=== PATIENT | male | born 1970 | race American Indian/Alaskan Native ===

== ENCOUNTER 2020-08-20 20:14 | Emergency (ER) | payer SELFPAY ==
--- NOTE | 2020-08-20 20:56 | Event Note ---
ED Screening Note ED Screening Note: has not taken BP medication in a couple weeks states he is supposed to be taking amlodipine and hctz states that he began having tingling in the right arm no numbness or weakness no CP no SOB no fever no n/v/d no other pmhx no allergies to meds +smoker, 1/2 ppd This initial assessment/diagnostic orders/clinical plan/treatment(s) is/are subject to change based on patients health status, clinical progression and re- assessment by fellow clinical providers in the ED. Further treatment and workup at subsequent clinical providers discretion. Patient/guardian urged not to elope from the ED as their condition may be serious if not clinically assessed and managed. Initial orders include: labs, EKG, ua
[2020-08-20] MEDS ORDERED: amLODIPine 5 MG TAB PO ONE (21:18)
--- NOTE | 2020-08-20 21:18 | Emergency Department Report ---
HPI - General Chief Complaint: Dizziness Time Seen by Provider: 08/20/20 20:55 - HPI HPI: This is a 49-year-old male who presents to the emergency department with a complaint of a 2-week history of elevated blood pressure intermittent lightheadedness, intermittent right upper arm soreness and occasional right arm numbness. Patient does have history of hypertension for which she is on 2 blood pressure medications, the names of which she cannot remember, but he lost the medication about 3 weeks ago. Patient came in this evening as he brought his in to be seen for a cough and decided that this was a good time to be checked out for his previously mentioned symptoms. At the time of my examination the patient is asymptomatic. There are no known aggravating or alleviating factors. He does not have a primary care physician. He is a tobacco smoker. He does drink alcohol, although not daily and no history of alcohol dependence, and the patient denies any illicit drug use. Patient has been checking his blood pressure at home and says that it has been variable. He denies any chest pain, shortness of breath, fever, lower extremity swelling, back pain. No recent travel. ED Past Medical Hx - Past Medical History Previous Medical History?: Yes Hx Hypertension: Yes - Social History Smoking Status: Current Every Day Smoker Substance Use Type: Alcohol - Medications Home Medications: Home Medications Medication Instructions Recorded Confirmed Last Taken Type amLODIPine 10 mg PO DAILY #30 tab 08/20/20 Unknown Rx lisinopriL [Zestril TAB] 10 mg PO QDAY #30 tablet 08/20/20 Unknown Rx ED Review of Systems ROS: Stated complaint: ELEVATED BLOOD PRESSURE Other details as noted in HPI Comment: All other systems reviewed and negative Constitutional: denies: chills, fever Eyes: denies: eye pain, vision change ENT: denies: ear pain, throat pain Respiratory: denies: cough, shortness of breath Cardiovascular: denies: chest pain, palpitations Gastrointestinal: denies: abdominal pain, vomiting Genitourinary: denies: dysuria, discharge Musculoskeletal: myalgia (intermittent right arm soreness). denies: back pain Skin: denies: rash Neurological: numbness (intermittent right arm numbness), other (lightheaded). denies: headache, weakness Physical Exam - Physical Exam Vital Signs: Vital Signs 08/20/20 20:39 Temperature 99.3 F Pulse Rate 84 Respiratory 18 Rate Blood Pressure 177/105 O2 Sat by Pulse 97 Oximetry Physical Exam: GENERAL: The patient is well-developed well-nourished. HENT: Normocephalic. Atraumatic. Patient has moist mucous membranes. EYES: Extraocular motions are intact. No nystagmus. NECK: Supple. Trachea is midline. CHEST/LUNGS: Clear to auscultation. There is no respiratory distress noted. HEART/CARDIOVASCULAR: Regular. There is no tachycardia. There is no murmur. ABDOMEN: Abdomen is soft, nontender. Patient has normal bowel sounds. SKIN: Skin is warm and dry. NEURO: The patient is awake, alert, and oriented. The patient is cooperative. The patient has no focal neurologic deficits. Normal speech. Cranial nerves II through XII grossly intact. No pronator drift or dysmetria. MUSCULOSKELETAL: There is no tenderness or deformity. There is no limitation range of motion. Muscle strength 5 out of 5 for upper and lower extremities bilaterally. ED Course Vital Signs 08/20/20 20:39 Temperature 99.3 F Pulse Rate 84 Respiratory 18 Rate Blood Pressure 177/105 O2 Sat by Pulse 97 Oximetry ED Medical Decision Making - Lab Data Result diagrams: 08/20/20 21:14 08/20/20 21:14 - EKG Data -: EKG Interpreted by Me EKG shows normal: sinus rhythm, axis, intervals, QRS complexes (LVH, Q waves to the septal leads), ST-T waves (T wave inversions to the lateral leads) - EKG Data When compared to previous EKG there are: previous EKG unavailable Interpretation: other (Sinus rhythm, normal axis, normal intervals, Q waves to the septal leads, LVH, T wave inversions to the lateral leads. No ST elevation myocardial infarction.) - Medical Decision Making This patient presents to the emergency department with the complaints of intermittent mild lightheadedness, intermittent right arm soreness and numbness, and issues with controlling his blood pressure. Although the patient does have medication noncompliance as he has been out of his medications for close to 3 weeks. At the time of my evaluation the patient is asymptomatic. The only reason the patient checked into the emergency department this evening was because he brought his here to be evaluated for a cough that she has, and the patient felt it was a good time to get evaluated for his blood pressure and recent issues. On examination the patient does not have any focal, motor or sensory deficits and his cranial nerves are intact. He has full muscle strength to all 4 extremities. He does not appear in any respiratory or acute distress. The patient is a 0 on the NIH stroke scale. The patient has no complaints of any recent shortness of breath or chest pain. An EKG was done that shows some T wave inversions to the lateral leads, LVH, Q waves to the septal leads, but there is no morphology consistent with ST elevation myocardial infarction. The patient's labs have been mostly unremarkable including CBC, metabolic panel, urinalysis and a negative troponin. The patient did have some mild renal insufficiency with a creatinine level of 1.4 and a GFR of 54. Patient does not appear clinically dehydrated. After talking with the patient, it appears that his 2 blood pressure medications are Norvasc 10 mg and lisinopril 10 mg. Patient was given a dose of Norvasc here prior to discharge. His blood pressure, just prior to discharge, was seen by me to be 164/108. I spoke to the patient regarding the hypertension, and the lab findings of mild renal insufficiency. We also discussed the T wave inversions found on the EKG. For this reason the patient's contact information has been sent over to [facility], and someone from their office should be contacting you shortly for close outpatient follow-up. We discussed smoking cessation. Staying away from foods that are high in salt and caffeine, and keeping a blood pressure log. The patient will be restarted on his blood pressure medications. He has been given outpatient referrals for primary care. He will return to the emergency department with any return of his symptoms, development of chest pain or shortness of breath, with any new concerning symptoms not addressed during this emergency department visit, or with any acute distress. Critical Care Time: No Critical care attestation.: If time is entered above; I have spent that time in minutes in the direct care of this critically ill patient, excluding procedure time. ED Disposition Clinical Impression: Asymptomatic hypertensive urgency, Intermittent lightheadedness, Mild renal insufficiency Disposition: DC-01 TO HOME OR SELFCARE Is pt being admited?: No Condition: Stable Instructions: Acute Kidney Injury, Adult, Dizziness, Hypertension, Adult Additional Instructions: Please follow-up with a primary care physician in the next few days. I will give you multiple referrals for outpatient primary care physicians and clinics. I have sent your contact information over to the [facility], and someone from their office should be contacting you shortly for close outpatient follow-up. I would like you to follow-up with the sex offender treatment professional regarding the EKG that was done here today. I am restarting you on your blood pressure medications. Take these medications as prescribed. Try to stay away from foods that are high in salt and caffeinated products. Please quit smoking tobacco. Keep a blood pressure log. Your kidney function was slightly decreased. Please follow-up with a primary care physician about this. However, avoid taking any NSAIDs such as Aleve, ibuprofen, naproxen, Advil, until follow-up with primary care. Return to the emergency department with any worsening of your symptoms, new or concerning symptoms not addressed during this current emergency department visit , or with any acute distress. Prescriptions: amLODIPine 10 mg PO DAILY #30 tab lisinopriL [Zestril TAB] 10 mg PO QDAY #30 tablet Referrals: KARIE HOSKINS MD [Staff Physician] - 2-3 Days AURELIA ALVA MD [Staff Physician] - 2-3 Days [facility] [Provider Group] - 2-3 Days Time of Disposition: 22:04 - Assessment Assessment Interval: Baseline - Level of Consciousness 1a. Level of Consciousness: alert/keenly responsive - LOC Questions 1b. LOC Questions: answers both correctly - LOC Command 1c. LOC Commands: performs tasks correctly - Best Gaze 2. Best Gaze: normal - Visual 3. Visual: no visual loss - Facial Palsy 4. Facial Palsy: normal symmetrical movement - Motor Arm 5a. Motor Arm Left: no drift 5b. Motor Arm Right: no drift - Motor Leg 6a. Motor Leg Left: no drift 6b. Motor Leg Right: no drift - Limb Ataxia 7. Limb Ataxia: absent - Sensory 8. Sensory: normal - Best Language 9. Best Language: no aphasia - Dysarthria 10. Dysarthria: normal - Extinction and Inattention 11. Extinction/Inattention: no abnormality - Scoring Total Score: 0 Stroke Severity: No Stroke Symptoms
[2020-08-20 21:22] LABS: Bilirubin,Urine NEG (Negative); Blood,Urine NEG (Negative); Color,Urine Yellow (Yellow); Mucus,Urine FEW /HPF
[2020-08-20 21:25] LABS: WBC,Urine < 1.0 /HPF (0.0-6.0)
[2020-08-20 21:31] LABS: Basophils % (Auto) 0.6 % (0.0-1.8); Eosinophils # (Auto) 0.2 K/mm3 (0.0-0.4); Eosinophils % (Auto) 2.9 % (0.0-4.3); Hematocrit 43.5 % (35.5-45.6); Hemoglobin 14.7 gm/dl (11.8-15.2); Lymphocytes # (Auto) 2.2 K/mm3 (1.2-5.4); Lymphocytes % (Auto) 31.4 % (13.4-35.0); Mean Corpuscular HGB Conc 34 % (32-34); Mean Corpuscular Volume 96 fl (84-94); Monocytes # (Auto) 0.7 K/mm3 (0.0-0.8); Monocytes % (Auto) 10.2 % (0.0-7.3); Platelet Count 233 K/mm3 (140-440); Red Blood Count 4.52 M/mm3 (3.65-5.03); Red Cell Distribution Width 16.7 % (13.2-15.2)
[2020-08-20 21:51] LABS: Alanine Aminotransferase 23 units/L (7-56); Albumin 3.9 g/dL (3.9-5); BUN/Creatinine Ratio 10; Blood Urea Nitrogen 14 mg/dL (9-20); Calcium 9.1 mg/dL (8.4-10.2); Hemolysis Index 12
[2020-08-20 22:04] VITALS: BP 171/108
== END 2020-08-20 22:30 | disposition home or self-care (01) ==
LOC: ED 20:14
DX: I16.0 Hypertensive urgency (principal); R42 Dizziness and giddiness; N28.9 Disorder of kidney and ureter, unspecified; I10 Essential (primary) hypertension; F17.200 Nicotine dependence, unspecified, uncomplicated; Z79.899 Other long term (current) drug therapy
CPT/HCPCS: 36415; 80053; 81001; 84484; 85025; 93005